=== PATIENT | male | born 1985 | race African-American/Black ===

== ENCOUNTER 2019-06-05 12:30 | Outpatient (CLI) | payer OTHER ==
[2019-06-05] MEDS ORDERED: BUFFERED LIDOCAINE 10 ML SYRINGE ONE (13:02)
[2019-06-05] MEDS ORDERED: GADOPENTETATE DIMEGLUMINE 5 ML VIAL IVP ONE ×3 (13:03→14:35)
[2019-06-05] MEDS ORDERED: IOTHALAMATE MEGLUMINE 50 ML VIAL ONE (13:03)
[2019-06-05] MEDS ORDERED: IOTHALAMATE MEGLUMINE 50 ML VIAL IVP ONE ×2 (14:35)
[2019-06-05] MEDS ORDERED: BUFFERED LIDOCAINE 10 ML SYRINGE IU ONE ×2 (14:35)
--- NOTE | 2019-06-05 15:30 | MRI Report ---
Reason: PAIN LT SHOULDER Procedure Date: 06/05/2019 Accession Number: [id number] / [id number] Procedure: MRI - Arthrogram Shoulder LT CPT Code: FULL RESULT: EXAM: LEFT SHOULDER MRI ARTHROGRAM WITH CONTRAST. EXAM DATE: 06/05/2019 02:45 PM. CLINICAL HISTORY: Left shoulder pain and decreased range of motion. Injury months ago. COMPARISON: None. TECHNIQUE: Multiplanar, multisequence T1-weighted and fluid-sensitive sequences of the shoulder after an arthrographic injection of dilute gadolinium, dictated under a separate exam. Other: None. FINDINGS: Acromioclavicular Region: The acromion is type II. The acromioclavicular joint is unremarkable. The coracoacromial and coracoclavicular ligaments are intact. There is no contrast or fluid in the subacromial/subdeltoid bursa. Glenohumeral Region: No subluxation. No loose bodies. The articular cartilage is unremarkable. The glenohumeral ligaments and joint capsule are unremarkable. Bone Marrow: No fracture, marrow edema or bone lesions. Labrum: The labrum is unremarkable. Biceps Tendon: The long head of the biceps tendon and biceps bakari are intact. Musculature/Rotator Cuff: The subscapularis, supraspinatus, infraspinatus, and teres minor tendons are intact. No edema or fatty atrophy. Other: The subcutaneous tissues are unremarkable. IMPRESSION: No MRI abnormalities in the shoulder. [facility]
--- NOTE | 2019-06-06 14:38 | XRAY Report ---
Reason: LT SHOULER PAIN Procedure Date: 06/05/2019 Accession Number: [id number] / [id number] Procedure: FL - Arthrogram Needle Placement CPT Code: FULL RESULT: EXAM: FLUOROSCOPIC GUIDANCE EXAM DATE: 06/05/2019 02:12 PM. CLINICAL HISTORY: Left shoulder pain, fluoroscopic guidance for arthrogram. COMPARISON: None. IMPRESSION: Fluoroscopic guidance provided for left shoulder arthrography. Total fluoroscopy time: 0.3 minutes. Number of images: 15. [facility]
== END 2019-06-05 12:31 | disposition home or self-care (01) ==
LOC: DI 12:30
PROVIDERS: ATTEND Student in an Organized Health Care Education/Training Program
DX: M25.512 Pain in left shoulder (principal)
CPT/HCPCS: 23350; 73222; 77002; Q9961